=== PATIENT | male | born 1935 | race African-American/Black ===

== ENCOUNTER 2022-07-23 15:06 | Emergency (ER) | payer OTHER ==
[~2022-07-23] VITALS: Ht 177.8 cm; Wt 87.0 kg
[2022-07-23 16:41] LABS: BASOPHILS % 0.6 % (0.0-2.0); EOSINOPHILS % 1.3 % (0.0-5.0); HEMATOCRIT. 38.7 % (42.0-52.0); HEMOGLOBIN. 12.9 g/dL (14.0-18.0); LYMPHOCYTES % 15.7 % (20.0-50.0); MEAN CORPUSCULAR HEMOGLOBIN 30.2 pg (28.0-32.0); MEAN CORPUSCULAR VOLUME 90.3 fL (80.0-94.0); MEAN PLATELET VOLUME 7.7 fl (7.4-10.4); MONOCYTES % 9.3 % (2.0-8.0); NEUTROPHILS % 73.1 % (40.0-76.0); PLATELET 215 x1000/uL (130-400); RED BLOOD CELL COUNT 4.28 mill/uL (4.7-6.1); RED CELL DISTRIBUTION WIDTH 15.5 % (11.6-14.6)
[2022-07-23 18:29] VITALS: BP 168/92
[2022-07-23 18:34] LABS: CHLORIDE 106 mEq/L (98-107)
== END 2022-07-23 21:45 | disposition short-term general hospital (02) ==
LOC: ER 15:06 → CANBEDREQ 07-26 00:53
DX: R55 Syncope and collapse (principal); E11.9 Type 2 diabetes mellitus without complications; I11.9 Hypertensive heart disease without heart failure; Z20.822 Contact with and (suspected) exposure to COVID-19
CPT/HCPCS: 36415; 71045; 80053; 82962; 83880; 84484; 85025; 87426; 93005; 99285; C9803